=== PATIENT | female | born 1965 ===

== ENCOUNTER 2022-04-15 06:15 | Day surgery (SDC) | payer OTHER ==
[~2022-04-15] VITALS: Ht 170.2 cm; Wt 88.5 kg
[~2022-04-15 06:15] MED LIST: SYNTHROID50 MCG PO; TOPROL XL25 M1 PO
== END 2022-04-15 14:40 | disposition home or self-care (01) ==
LOC: CIR.AMB 06:15
PROVIDERS: ATTEND Specialist
DX: N60.31 Fibrosclerosis of right breast (principal); N62 Hypertrophy of breast; Z20.822 Contact with and (suspected) exposure to COVID-19; I10 Essential (primary) hypertension; Z71.6 Tobacco abuse counseling; F17.210 Nicotine dependence, cigarettes, uncomplicated; E03.9 Hypothyroidism, unspecified; M19.90 Unspecified osteoarthritis, unspecified site